=== PATIENT | male | born 1985 | race Native Hawaiian/Other Pacific Islander ===

== ENCOUNTER 2017-08-06 11:22 | Outpatient (CLI) | payer BC | END 2017-08-06 12:30 | disposition home or self-care (01) | LOC: RAD 11:22 | DX: R09.1 Pleurisy (principal) ==

== ENCOUNTER 2021-10-30 15:32 | Outpatient (CLI) | payer OTHER | END 2021-10-30 19:06 | disposition home or self-care (01) | LOC: RAD 15:32 | PROVIDERS: ATTEND Internal Medicine | DX: M54.50 Low back pain, unspecified (principal) ==

== ENCOUNTER 2023-01-14 09:23 | Emergency (ER) | payer OTHER ==
[~2023-01-14] VITALS: Ht 175.3 cm; Wt 78.0 kg
[2023-01-14 09:30] VITALS: TEMP 97.3
[2023-01-14 10:52] VITALS: BP 118/78
== END 2023-01-14 10:53 | disposition home or self-care (01) ==
LOC: ED 09:23
DX: R51.9 Headache, unspecified (principal)
CPT/HCPCS: 99282; J2270; J2405